=== PATIENT | male | born 1985 | race Hispanic/Latino ===

== ENCOUNTER 2017-06-10 11:05 | Emergency (ER) | payer MEDICAID, OTHER | END 2017-06-10 11:11 | disposition left against medical advice (07) | LOC: C.ER 11:05 | DX: Z04.8 Encounter for examination and observation for other specified reasons (principal); Z02.9 Encounter for administrative examinations, unspecified ==

== ENCOUNTER 2017-06-10 11:20 | Inpatient (IN) | payer MEDICAID, OTHER ==
--- NOTE | 2017-06-10 12:26 | C.PDOC ---
History Of Present Illness 31 y/o male presents to ED requesting detox from heroin (IVDA, uses 20 bags daily). Patient denies physical complaints at this time, and denies SI/HI. Time Seen by Provider: 06/10/17 11:33 Chief Complaint (Nursing): Substance Abuse History Per: Patient History/Exam Limitations: no limitations Current Symptoms Are (Timing): Still Present Suicide/Self Injury Attempted (Context): None Modifying Factor(s): Narcotics Severity: Moderate Associated Symptoms: denies: Suicidal Thoughts, Suicidal Plan Additional History Per: Patient Past Medical History Reviewed: Historical Data, Nursing Documentation, Vital Signs Vital Signs: Last Vital Signs Temp 97.9 F 06/10/17 17:34 Pulse 79 06/10/17 17:34 Resp 18 06/10/17 17:34 BP 107/69 06/10/17 17:34 Pulse Ox 96 06/10/17 17:34 - Medical History PMH: Hepatitis (C) - [employer] Procedures DETOXIFICATION SERVICES FOR SUBSTANCE ABUSE TREATMENT (04/16/16) Family History: States: No Known Family Hx - Social History Hx Tobacco Use: Yes (heavy smoker) Hx Alcohol Use: Yes Hx Substance Use: Yes - Immunization History Hx Tetanus Toxoid Vaccination: No Hx Influenza Vaccination: No Hx Pneumococcal Vaccination: No Review Of Systems Except As Marked, All Systems Reviewed And Found Negative. Constitutional: Negative for: Fever, Chills Cardiovascular: Negative for: Chest Pain, Palpitations Respiratory: Negative for: Cough, Shortness of Breath Gastrointestinal: Negative for: Nausea, Vomiting, Abdominal Pain, Diarrhea Skin: Negative for: Rash, Bruising Neurological: Negative for: Weakness, Numbness, Headache, Dizziness Psych: Positive for: Other (heroin abuse). Negative for: Suicidal ideation Physical Exam - Physical Exam Appears: Well, Non-toxic, No Acute Distress, Other (appears drowsy/under influence of narcotics) Skin: Normal Color, Warm, Dry, No Rash Head: Atraumatic, Normacephalic Eye(s): bilateral: Normal Inspection, EOMI Oral Mucosa: Moist Neck: Supple Cardiovascular: Rhythm Regular Respiratory: Normal Breath Sounds, No Rales, No Rhonchi, No Wheezing Extremity: Normal ROM, No Pedal Edema, No Calf Tenderness, No Deformity Neurological/Psych: Oriented x3 Gait: Steady ED Course And Treatment - Laboratory Results Result Diagrams: 06/10/17 12:40 06/10/17 12:40 O2 Sat by Pulse Oximetry: 98 (on RA) Pulse Ox Interpretation: Normal Progress Note: Blood work, UA, UDS ordered and reviewed. 1:50pm- Patient medically cleared. Accepted for detox admission by Dr. Camacho. Disposition - Disposition Disposition: HOSPITALIZED Disposition Time: 13:51 Condition: STABLE - Clinical Impression Clinical Impression: Heroin dependence - Scribe Statement The provider has reviewed the documentation as recorded by the Scribe Edilma Madrigal All medical record entries made by the Scribe were at my direction and personally dictated by me. I have reviewed the chart and agree that the record accurately reflects my personal performance of the history, physical exam, medical decision making, and the department course for this patient. I have also personally directed, reviewed, and agree with the discharge instructions and disposition. Decision To Admit - Pt Status Changed To: Hospital Disposition Of: Inpatient - Admit Certification Admit to Inpatient:: After my assessment, the patient will require hospitalization for at least two midnights. This is because of the severity of symptoms shown, intensity of services needed, and/or the medical risk in this patient being treated as an outpatient. - InPatient: Physician Admission Certification: I certify that this patient requires 2 or more midnights of care for the following reason:: see notes - . Bed Request Type: Detox Admitting Physician: Kristen Camacho Patient Diagnosis: Heroin dependence
[2017-06-10 12:44] LABS: BASO % 0.6 % (0.0-2.0); EOS # 0.1 K/uL (0.0-0.7); EOS % 1.1 % (0.0-4.0); HEMATOCRIT 37.5 % (35.0-51.0); LYMPH # 1.7 K/uL (1.0-4.3); LYMPH % 31.2 % (20.0-40.0); MEAN CELL VOLUME 82.4 fL (80.0-94.0); MEAN CORPUSCULAR HEMOGLOBIN 28.8 pg (27.0-31.0); MEAN CORPUSCULAR HGB CONC 34.9 g/dL (33.0-37.0); MEAN PLATELET VOLUME 7.2 fL (7.2-11.7); MONO # 0.8 K/uL (0.0-0.8); MONO % 14.1 % (0.0-10.0); WHITE BLOOD COUNT 5.5 K/uL (4.8-10.8)
[2017-06-10 13:05] LABS: CHLORIDE 99 mmol/L (98-107)
[2017-06-10 13:06] LABS: POTASSIUM 3.9 mmol/L (3.6-5.2); SODIUM 139 mmol/L (132-148)
[2017-06-10 13:08] LABS: ALB/GLOB RATIO 1.3 (1.0-2.1); ALKALINE PHOSPHATASE 96 U/L (38-126); AST/SGOT 62 U/L (17-59); BILIRUBIN,TOTAL 0.9 mg/dL (0.2-1.3); BLOOD UREA NITROGEN 15 mg/dL (9-20); CARBON DIOXIDE 28 mmol/L (22-30); GFR AFRICAN-AMERICAN > 60; TOTAL PROTEIN 7.1 g/dL (6.3-8.3)
[2017-06-10 13:09] LABS: ALCOHOL SERUM < 10 mg/dl (0-10); ALT/SGPT 82 U/L (21-72); GLUCOSE,RANDOM 119 mg/dL (75-110)
[2017-06-10 13:18] LABS: RBC URINE < 1 /hpf (0-3); URINE BILIRUBIN NEGATIVE (NEGATIVE); URINE BLOOD NEGATIVE (NEGATIVE); URINE COLOR Yellow (YELLOW); URINE GLUCOSE (UA) NORMAL (Normal); URINE HYALINE CAST 0-2 /lpf (0-2); URINE KETONE NEGATIVE (NEGATIVE); URINE LEUKOCYTE ESTERASE NEG Leu/uL (Negative); URINE PROTEIN NEGATIVE (NEGATIVE); URINE UROBILINOGEN NORMAL mg/dL (0.2-1.0); WBC URINE 1 /hpf (0-5)
[2017-06-10] MEDS ORDERED: Aluminum Hydroxide/Magnesium Hydroxide Susp (30 mL) PO PRN (14:05)
--- NOTE | 2017-06-10 14:49 | PCM.BM ---
<Olive Kruger - Last Filed: 06/10/17 14:47> Treatment Plan Problems - Problems identified on initial assessmt Potential for Opiate Withdrawals Date Initiated: 06/10/17 Assessment reference: NA Status: Active Treatment assets and liabiliti Patient Assests: adapts well, cooperative, ADL independent, physically healthy, negotiates basic needs Patient Liabilities: substance abuse - Milieu Protocol Maintain good personal hygiene: daily Encourage regular showers, daily Remind patient to perform daily oral care, daily Assist patient to perform ADL's Conduct patient checks and document Observation sheet: Q15 minutes Maintain personal safety: every shift Educate patient to report safety concerns to staff, every shift Monitor environment for contraband/sharps Medication safety: Monitor for expected outcome, potential side effects: every shift, Assess barriers to learning: every shift, Assess readiness for medication education: every shift <Kristen Camacho - Last Filed: 06/11/17 13:36> - Diagnosis (1) Opioid use disorder, severe, dependence Status: Acute Interventions: 06/11/17 13:36 * Assess 7x/week regarding severity of withdrawal * Educate regarding risks, benefits, side effects and alternatives of medications * Use Motivational Interviewing for abstinence * Use CBT for relapse prevention * Medication management for withdrawal symptoms * Encourage medication assisted treatment * (2) Cocaine use disorder, severe, dependence Status: Acute Interventions: 06/11/17 13:37 * Assess 7x/week regarding severity of withdrawal * Educate regarding risks, benefits, side effects and alternatives of medications * Use Motivational Interviewing for abstinence * Use CBT for relapse prevention * Medication management for withdrawal symptoms * Encourage medication assisted treatment * <Jacque Robles - Last Filed: 06/11/17 15:05> Family Contact Family involvement: Famliy/SO not involved Family contact: Patient declines to allow family contact at present - Goals for Treatment Patient goals for treatment: Complet detox and transition to [facility] at [facility] in [place], [place]. Discharge/Continuing Care - Education Needs Education Needs: Patient Medication, Patient Diagnosis/Disease Process, Patient Coping Skills, Patient Anger Management skills, Patient Placement options, Patient Community resources - Discharge Discharge Criteria: Free of agitation, Normal sleep pattern, No longer exhibiting s/s of withdrawal, Reduction of target symptoms Discharge to:: With Family - Treatment Team Participation Patient/Family/SO Statement: 06/11/17 15:06 "I already did an intake with [facility] so I wanna go there..." Discussed with Family/SO: No Was Patient/Family/SO present at Treatment Team Meeting: Yes <Tyron Power - Last Filed: 06/12/17 15:37> - Diagnosis (1) Opioid use disorder, severe, dependence Status: Acute Interventions: 06/11/17 13:36 * Assess 7x/week regarding severity of withdrawal * Educate regarding risks, benefits, side effects and alternatives of medications * Use Motivational Interviewing for abstinence * Use CBT for relapse prevention * Medication management for withdrawal symptoms * Encourage medication assisted treatment * 06/12/17 15:37 (2) Cocaine use disorder, severe, dependence Status: Acute Interventions: 06/11/17 13:37 * Assess 7x/week regarding severity of withdrawal * Educate regarding risks, benefits, side effects and alternatives of medications * Use Motivational Interviewing for abstinence * Use CBT for relapse prevention * Medication management for withdrawal symptoms * Encourage medication assisted treatment * 06/12/17 15:37
--- NOTE | 2017-06-11 11:42 | PCM.PSYCH ---
Initial Psychiatric Evaluation - Initial Psychiatric Evaluation Type of Admission: Voluntary Legal Status: Capacity Chief Complaint (in patient's own words): "Heroin" History of Present Illness and Precipitating Events: The patient is seen, chart reviewed and case discussed. This is a 21-year-old male, single with 2 children aged 9 and 6. 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 He lives alone in [place]. The patient is using 20 bags of IV heroin every day. He says that he started when he was 15 years old continued until 21, stopped until 29 y/o and then has been using since. This is his fourth detox and he has been to [facility] twice. He was also attending methadone program [facility] in [place]. He came off 2 months ago from 80 mg of methadone. The patient also uses IV cocaine for a few years and he uses it 2-3 times a week. He denies all other drugs, cigarettes and alcohol. Denies psych symptoms. Past psych history: Denies Medical history: Hepatitis C Family history: Denies Legal history: He is on probation until July. Current Medications: Active Medications Generic Name Dose Route Start Last Admin Trade Name Freq PRN Reason Stop Dose Admin Al Hydrox/Mg Hydrox/Simethicone 30 ml 06/10/17 14:05 Maalox 30 Ml PO TID PRN Indigestion / Heartburn Clonidine HCl 0.1 mg 06/10/17 14:05 Catapres PO Q8 PRN COWS Score More or Equal to 5 Gabapentin 300 mg 06/10/17 18:00 06/11/17 10:32 Neurontin PO 300 mg BID MONIK Administration Hydroxyzine HCl 50 mg 06/10/17 14:09 Atarax PO Q6H PRN Anxiety Ibuprofen 600 mg 06/10/17 14:06 Motrin Tab PO Q6H PRN Pain, moderate (4-7) Loperamide HCl 2 mg 06/10/17 14:05 Imodium PO Q8 PRN Diarrhea Methadone HCl 20 mg 06/11/17 10:00 06/11/17 10:32 Methadone PO 06/16/17 09:59 20 mg Q24H MONIK Administration Taper Ondansetron HCl 4 mg 06/10/17 14:05 Zofran Tab PO Q8 PRN Nausea/Vomiting Trazodone HCl 100 mg 06/10/17 14:09 06/10/17 22:36 Desyrel PO 100 mg HS PRN Administration Insomnia Past Psychiatric History - Past Psychiatric History Previous Treatment History: None Pertinent Medical Hx (Current Medical&Sleep Prob, Allergies): Allergies Allergy/AdvReac Type Severity Reaction Status Date / Time amoxicillin Allergy Verified 06/10/17 11:26 No Known Home Med 06/10/17 Review of Systems - Psychiatric Psychiatric: Abnormal Sleep Pattern, Anxiety, Difficulty Concentrating. absent : Depression, Hallucinations, Homicidal Ideation, Suicidal Ideation Mental Status Examination - Personal Presentation Personal Presentation: Looks stated age - Affect Affect: Constricted - Motor Activity Motor Activity: Calm - Reliability in Providing Information Reliability in Providing Information: Good - Speech Speech: Organized - Mood Mood: Anxious - Formal Thought Process Formal Thought Process: No Impairment - Cognitive Functions Orientation: Person, Place, Situation, Time Attention/Concentration: Attentive Estimate of Intelligence: Average Memory: Recent intact, as evidence by: Ability to recall events of the day, Remote intact, as evidenced by: Abilit to recall sig. life events - Risk Risk: Withdrawal, Diminished functioning - Strength & Assets Inventory Strength & Assets Inventory: Employment history, Cooperative - Limitations Limitations: Other DSM 5 DX - DSM 5 DSM 5 Diagnosis: opioid withdrawal Opioid use disorder, severe Cocaine use disorder, moderate - Recommended/Plan of Treatment Treatment Recommendations and Plan of Treatment: Methadone detox As needed medications Gabapentin for augmentation and for cocaine Attend groups and activities Supportive therapy and psychoeducation [place] for abstinence from both drugs CBT for relapse prevention Encourage MAT Refer to rehab or IOP Attend self-help groups as well 34 min Projected ELOS: 4-5 days Prognosis: Good with treatment Discharge Plan and Discharge Criteria: No wdw sxs - Smoking Cessation Smoking Cessation Initiated: No Reason for not providing: non-smoker
[2017-06-12 06:36] VITALS: RESP 18
--- NOTE | 2017-06-12 15:40 | PCM.PYCHPN ---
Psychiatric Progress Note - Psychiatric Progress Note Patient seen today, length of contact: 15 minutes Patient Chief Complaint: I'm feeling better but I also have anxiety. Problems Identified/Issues Discussed: Patient seen. Chart reviewed. Case discussed with the staff. Issues related to illness and treatment were discussed with the patient. Reported compliant with treatment with no adverse affects. Tolerating treatment very well. Patient reported feeling better with treatment with some anxiety. History last withdrawal symptoms. Better sleep. At the time of evaluation, patient was awake alert oriented 3. Had no delusions , no auditory or visual hallucination, no suicidal ideations or homicidal ideations. Medical Problems: Hepatitis C Diagnostic Results: Reported DSM 5 Symptoms Update: Improvement with treatment Medication Change: No Medical Record Reviewed: Yes Mental Status Examination - Cognitive Function Orientation: Person, Place, Situation, Time Memory: Intact Attention: WNL Concentration: WNL Association: WNL Fund of Knowledge: WN Decription of patient's judgement and insights: Fair - Mood Mood: Anxious - Affect Affect: Other (Appropriate) - Speech Speech: Appropriate - Formal Thought Process Formal Thought Process: No Impairment Psychotic Thoughts and Behaviors: None - Suicidal Ideation Suicidal Ideation: No - Homicidal Ideation Homicidal Ideation: No Goal/Treatment Plan - Goal/Treatment Plan Need for Continued Stay: Remain at risks for inpatient hospitalization, Discharge may exacerbated symptoms, Severe functional impairment Progress Toward Problem(s) and Goals/Treatment Plan: Patient education Supportive therapy Continue treatment as before Estimated Date of D/C: 06/15/17 - Smoking Cessation Smoking Cessation Initiated: No
--- NOTE | 2017-06-13 13:03 | PCM.PYCHPN ---
Psychiatric Progress Note - Psychiatric Progress Note Patient seen today, length of contact: 15 minutes Patient Chief Complaint: I'm feeling better. Problems Identified/Issues Discussed: Patient seen. Chart reviewed. Case discussed with the staff. Issues related to illness and treatment were discussed with the patient. Reported compliant with treatment with no adverse affects. Tolerating treatment very well. Patient reported feeling better with treatment, no anxiety. Better sleep. At the time of evaluation, patient was awake alert oriented 3. Had no delusions , no auditory or visual hallucination, no suicidal ideations or homicidal ideations. Medical Problems: Hepatitis C Diagnostic Results: Reported DSM 5 Symptoms Update: Improving with treatment Medication Change: No Medical Record Reviewed: Yes Mental Status Examination - Cognitive Function Orientation: Person, Place, Situation, Time Memory: Intact Attention: WNL Concentration: WNL Association: WNL Fund of Knowledge: [facility] Decription of patient's judgement and insights: Fair - Mood Mood: Neutral - Affect Affect: Other (Appropriate) - Speech Speech: Appropriate - Formal Thought Process Formal Thought Process: No Impairment Psychotic Thoughts and Behaviors: None - Suicidal Ideation Suicidal Ideation: No - Homicidal Ideation Homicidal Ideation: No Goal/Treatment Plan - Goal/Treatment Plan Need for Continued Stay: Remain at risks for inpatient hospitalization, Discharge may exacerbated symptoms, Severe functional impairment Progress Toward Problem(s) and Goals/Treatment Plan: Patient education Supportive therapy Continue treatment as before Estimated Date of D/C: 06/15/17 - Smoking Cessation Smoking Cessation Initiated: No
--- NOTE | 2017-06-14 10:40 | PCM.PYCHDC ---
Mental Status Examination - Mental Status Examination Orientation: Person, Place, Situation, Time Memory: Intact Mood: Anxious Affect: Constricted Speech: Appropriate Attention: WNL Concentration: WNL Association: WNL Fund of Knowledge: WNL Formal Thought Process: No Impairment Suicidal Ideation: No Current Homicidal Ideation?: No Discharge Summary - Discharge Note Reason for Hospitalization: Heroin detox Consultations:: List each consultation separately and include: 1. Reason for request. 2. Findings. 3. Follow-up Summary of Hospital Course include:: 1. Description of specific treatment plan utilized for patients during their course of treatmen. 2. Summarize the time- course for resolution of acute symptoms and/or regressed behaviors. 3. Describe issues identified and worked on during hospitalization. 4. Describe medication utilized. 5. Describe medical problems identified and treated. 6. Reassessment of suicide risk Summary of Hospital Course: The patient is seen, chart reviewed and case discussed. This is a 21-year-old male, single with 2 children aged 9 and 6. 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 He lives alone in [place]. The patient is using 20 bags of IV heroin every day. He says that he started when he was 15 years old continued until 21, stopped until 29 y/o and then has been using since. This is his fourth detox and he has been to [facility] twice. He was also attending methadone program [facility] in [place]. He came off 2 months ago from 80 mg of methadone. The patient also uses IV cocaine for a few years and he uses it 2-3 times a week. He denies all other drugs, cigarettes and alcohol. Denies psych symptoms. Past psych history: Denies Medical history: Hepatitis C Family history: Denies Legal history: He is on probation until July. - Final Diagnosis (DSM 5) Condition upon Discharge: FAIR DSM 5: opioid withdrawal Opioid use disorder, severe Cocaine use disorder, moderate Disposition: HOME/ ROUTINE Prescriptions/Medication Reconciliation: Gabapentin [Neurontin] 300 mg PO BID #60 cap traZODone [Desyrel] 100 mg PO HS PRN #30 tab PRN Reason: Insomnia - Smoking Cessation Smoking Cessation Medication prescribed: No - Antipsychotic Medications Pt discharged on 2 or more routine antipsychotic medications: No
[2017-06-14 11:01] VITALS: BP 135/75; PULSE 81; TEMP 97.5; O2SAT 99
== END 2017-06-14 10:00 | disposition home or self-care (01) | DRG 744 ==
LOC: C.ER 11:20 → C.7D 13:51
PROVIDERS: ADMIT Psychiatry & Neurology Psychiatry; ATTEND Psychiatry & Neurology Psychiatry
PROC: HZ2ZZZZ Detoxification Services for Substance Abuse Treatment (ICD-10-PCS; principal; 2017-06-10)
PROC: HZ59ZZZ Individual Psychotherapy for Substance Abuse Treatment, Supportive (ICD-10-PCS; 2017-06-10)
PROC: HZ46ZZZ Group Counseling for Substance Abuse Treatment, Psychoeducation (ICD-10-PCS; 2017-06-10)
DX: F11.23 Opioid dependence with withdrawal (principal); F14.20 Cocaine dependence, uncomplicated; B18.2 Chronic viral hepatitis C; F17.210 Nicotine dependence, cigarettes, uncomplicated

== ENCOUNTER 2017-07-05 10:49 | Emergency (ER) | payer MEDICAID, OTHER ==
--- NOTE | 2017-07-05 11:38 | C.PDOC ---
History Of Present Illness 31 yr old male with history of heroin abuse, presents to the ER requesting detox. 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 Denies SI, HI, chest pain, SOB, nausea, vomiting, abdominal pain, headache, weakness or numbness. At the time of evaluation, appears comfortable, not in any apparent distress. Time Seen by Provider: 07/05/17 11:13 Chief Complaint (Nursing): Psychiatric Evaluation History Per: Patient History/Exam Limitations: no limitations Onset/Duration Of Symptoms: Persistent Past Medical History Reviewed: Historical Data, Nursing Documentation, Vital Signs Vital Signs: Last Vital Signs Temp 98.1 F 07/05/17 11:13 Pulse 87 07/05/17 11:13 Resp 18 07/05/17 11:13 BP 125/84 07/05/17 11:13 Pulse Ox 97 07/05/17 11:56 - Medical History PMH: Anxiety, Hepatitis (C) - [employer] Procedures DETOXIFICATION SERVICES FOR SUBSTANCE ABUSE TREATMENT (06/10/17) GROUP SUCCESSFACTORS CONSULTANT FOR SUBSTANCE ABUSE TREATMENT, PSYCHOEDUCATION (06/10/17) INDIV PSYCHOTHERAPY FOR SUBSTANCE ABUSE TREATMENT, SUPPORT (06/10/17) Family History: States: No Known Family Hx - Social History Hx Tobacco Use: Yes (heavy smoker) Hx Alcohol Use: No Hx Substance Use: Yes - Immunization History Hx Tetanus Toxoid Vaccination: No Hx Influenza Vaccination: No Hx Pneumococcal Vaccination: No Review Of Systems Except As Marked, All Systems Reviewed And Found Negative. Cardiovascular: Negative for: Chest Pain Respiratory: Negative for: Shortness of Breath Gastrointestinal: Negative for: Nausea, Vomiting, Abdominal Pain Neurological: Negative for: Weakness, Headache Psych: Negative for: Suicidal ideation Physical Exam - Physical Exam Appears: Non-toxic, No Acute Distress Skin: Warm, Dry, No Rash Head: Atraumatic, Normacephalic Eye(s): bilateral: PERRL Nose: No Flaring, No Discharge Oral Mucosa: Moist, No Drooling Tongue: Normal Appearing Lips: Normal Appearing Throat: No Drooling Neck: No Midline Cervical Tenderness, No Paracervical Tenderness, No Step Off Deformity, Supple Cardiovascular: Rhythm Regular, No JVD Respiratory: No Decreased Breath Sounds, No Accessory Muscle Use, No Stridor, No Wheezing Gastrointestinal/Abdominal: Soft, No Tenderness Extremity: Normal ROM, No Tenderness, No Swelling Neurological/Psych: Oriented x3, Normal Speech ED Course And Treatment O2 Sat by Pulse Oximetry: 97 (RA) Pulse Ox Interpretation: Normal Progress Note: Case was discussed with Crisis team who states patient was admitted to detox less then 60 days ago and is ineligible for detox at the present time. On re-eavl, pt is afebrile, hemodynamicaly stable. Non-toxic. Denies suicidal or homocidal ideation or attempts. Pt understand, agrees with outpt f/u. Pt left without discharge papers. Disposition Counseled Patient/Family Regarding: Diagnosis, Need For Followup - Disposition Referrals: [facility] [Outside] Disposition: HOME/ ROUTINE Disposition Time: 11:30 Condition: STABLE Additional Instructions: FOLLOW UP WITH DETOX IN 2-3 DAYS FOR FURTHER EVALUATION AND TREATMENT RETURN IF ANY NEW CHANGES. Instructions: Opioid Dependence (ED) Forms: [employer] (Monegasque) - Clinical Impression Clinical Impression: Opioid use disorder, severe, dependence - PA / PATROL DEPUTY SHERIFF / Resident Statement MD/DO has reviewed & agrees with the documentation as recorded. - Scribe Statement The provider has reviewed the documentation as recorded by the Scribe Tonya Birmingham All medical record entries made by the Scribe were at my direction and personally dictated by me. I have reviewed the chart and agree that the record accurately reflects my personal performance of the history, physical exam, medical decision making, and the department course for this patient. I have also personally directed, reviewed, and agree with the discharge instructions and disposition.
[2017-07-05 12:03] VITALS: BP 125/84; PULSE 87; RESP 18; TEMP 98.1; O2SAT 97
== END 2017-07-05 11:35 | disposition home or self-care (01) ==
LOC: C.ER 10:49
DX: F11.20 Opioid dependence, uncomplicated (principal)

== ENCOUNTER 2017-08-05 12:02 | Inpatient (IN) | payer MEDICAID, OTHER ==
--- NOTE | 2017-08-05 12:34 | C.PDOC ---
History Of Present Illness 31 y/o male, with PMHx of substance abuse, IVDA, presents to ED requesting heroin detox. Notes using 50 bags of heroin a day. Pt was last admitted for detox 60 days ago. No physical complaints at this time. Time Seen by Provider: 08/05/17 12:23 Chief Complaint (Nursing): Substance Abuse History Per: Patient History/Exam Limitations: no limitations Onset/Duration Of Symptoms: Gradual Current Symptoms Are (Timing): Still Present Suicide/Self Injury Attempted (Context): None Severity: None Pain Scale Rating Of: 0 Associated Symptoms: denies: Suicidal Thoughts, Suicidal Plan Involuntary Hold By: None Recent travel outside of the [place]: No Additional History Per: Prior Records Past Medical History Reviewed: Historical Data, Nursing Documentation, Vital Signs Vital Signs: Last Vital Signs Temp 97.5 F L 08/05/17 12:04 Pulse 69 08/05/17 12:04 Resp 20 08/05/17 12:04 BP 112/74 08/05/17 12:04 Pulse Ox 96 08/05/17 14:08 - Medical History PMH: Anxiety, Hepatitis (C) Denies: Diabetes, HIV, HTN, Chronic Kidney Disease, Seizures, Sexually Transmitted Disease - [facility] Procedures DETOXIFICATION SERVICES FOR SUBSTANCE ABUSE TREATMENT (06/10/17) GROUP SHEET METAL FORMER FOR SUBSTANCE ABUSE TREATMENT, PSYCHOEDUCATION (06/10/17) INDIV PSYCHOTHERAPY FOR SUBSTANCE ABUSE TREATMENT, SUPPORT (06/10/17) Family History: States: Unknown Family Hx - Social History Hx Tobacco Use: Yes (heavy smoker) Hx Alcohol Use: No Hx Substance Use: Yes - Immunization History Hx Tetanus Toxoid Vaccination: No Hx Influenza Vaccination: No Hx Pneumococcal Vaccination: No Review Of Systems Except As Marked, All Systems Reviewed And Found Negative. Constitutional: Negative for: Fever, Chills Cardiovascular: Negative for: Chest Pain, Palpitations Respiratory: Negative for: Cough, Shortness of Breath Gastrointestinal: Negative for: Nausea, Vomiting, Abdominal Pain Neurological: Negative for: Headache, Dizziness Psych: Negative for: Suicidal ideation Physical Exam - Physical Exam Appears: Non-toxic, No Acute Distress Skin: Normal Color, Warm, Dry Head: Atraumatic, Normacephalic Oral Mucosa: Moist Neck: Supple Chest: Symmetrical Cardiovascular: Rhythm Regular, No Murmur Respiratory: Normal Breath Sounds, No Rales, No Rhonchi, No Wheezing Gastrointestinal/Abdominal: Soft, No Tenderness Extremity: Normal ROM Neurological/Psych: Oriented x3, Normal Speech ED Course And Treatment - Laboratory Results Result Diagrams: 08/05/17 13:42 08/05/17 13:42 O2 Sat by Pulse Oximetry: 96 (on RA) Pulse Ox Interpretation: Normal Medical Decision Making Medical Decision Making: Blood work, urinalysis ordered and reviewed. Pending crisis evaluation. Disposition Counseled Patient/Family Regarding: Diagnosis, Need For Followup - Disposition Disposition: HOSPITALIZED Disposition Time: 16:07 Condition: STABLE Additional Instructions: August 14 will be 60 days from your last admission. Call Jacque at [phone] on/after August 14. Return to the Emergency Department with any further concerns. - POA Present On Arrival: None - Clinical Impression Clinical Impression: Drug dependence - Scribe Statement The provider has reviewed the documentation as recorded by the Scribe Edilma Madrigal All medical record entries made by the Scribe were at my direction and personally dictated by me. I have reviewed the chart and agree that the record accurately reflects my personal performance of the history, physical exam, medical decision making, and the department course for this patient. I have also personally directed, reviewed, and agree with the discharge instructions and disposition. Decision To Admit - Pt Status Changed To: Hospital Disposition Of: Inpatient - Admit Certification Admit to Inpatient:: After my assessment, the patient will require hospitalization for at least two midnights. This is because of the severity of symptoms shown, intensity of services needed, and/or the medical risk in this patient being treated as an outpatient. - InPatient: Physician Admission Certification: I certify that this patient requires 2 or more midnights of care for the following reason:: needs inpatient detox - . Bed Request Type: Detox Patient Diagnosis: Drug dependence
[2017-08-05 13:48] LABS: BASO % 0.6 % (0.0-2.0); EOS # 0.2 K/uL (0.0-0.7); EOS % 2.7 % (0.0-4.0); HEMATOCRIT 45.1 % (35.0-51.0); LYMPH # 1.9 K/uL (1.0-4.3); LYMPH % 29.6 % (20.0-40.0); MEAN CELL VOLUME 83.7 fL (80.0-94.0); MEAN CORPUSCULAR HEMOGLOBIN 28.5 pg (27.0-31.0); MEAN PLATELET VOLUME 7.2 fL (7.2-11.7); MONO # 0.7 K/uL (0.0-0.8); MONO % 11.7 % (0.0-10.0); NRBC % 0.1 % (0.0-2.0); RED CELL DISTRIBUTION WIDTH 13.2 % (11.5-14.5); WHITE BLOOD COUNT 6.4 K/uL (4.8-10.8)
[2017-08-05 13:54] LABS: URINE BILIRUBIN NEGATIVE (NEGATIVE); URINE BLOOD NEGATIVE (NEGATIVE); URINE COLOR Yellow (YELLOW); URINE GLUCOSE (UA) NORMAL (Normal); URINE KETONE NEGATIVE (NEGATIVE); URINE LEUKOCYTE ESTERASE NEG Leu/uL (Negative); URINE PROTEIN NEGATIVE (NEGATIVE); URINE UROBILINOGEN NORMAL mg/dL (0.2-1.0)
[2017-08-05 14:01] LABS: ALB/GLOB RATIO 1.1 (1.0-2.1); ALCOHOL SERUM < 10 mg/dl (0-10); ALKALINE PHOSPHATASE 102 U/L (38-126); ALT/SGPT 117 U/L (21-72); BILIRUBIN,TOTAL 0.7 mg/dL (0.2-1.3); BLOOD UREA NITROGEN 16 mg/dL (9-20); CALCIUM 8.8 mg/dl (8.6-10.4); CARBON DIOXIDE 29 mmol/L (22-30); CHLORIDE 96 mmol/L (98-107); GFR AFRICAN-AMERICAN > 60; GLUCOSE,RANDOM 85 mg/dL (75-110); POTASSIUM 4.1 mmol/L (3.6-5.2); SODIUM 133 mmol/L (132-148); TOTAL PROTEIN 8.1 g/dL (6.3-8.3)
[2017-08-05 14:11] LABS: AST/SGOT 81 U/L (17-59)
--- NOTE | 2017-08-05 16:21 | PCM.BM ---
<Vanesa Barboza - Last Filed: 08/05/17 16:20> Treatment Plan Problems - Problems identified on initial assessmt potiential for opiate withdrawal Date Initiated: 08/05/17 Time Initiated: 16:20 Assessment reference: NA Status: Active Treatment assets and liabiliti Patient Assests: adapts well, cooperative, ADL independent, negotiates basic needs Patient Liabilities: substance abuse, medical problems - Milieu Protocol Maintain good personal hygiene: daily Encourage regular showers, daily Remind patient to perform daily oral care, daily Assist patient to perform ADL's Maintain personal safety: every shift Educate patient to report safety concerns to staff, every shift Monitor environment for contraband/sharps Medication safety: Monitor for expected outcome, potential side effects: every shift, Assess barriers to learning: every shift, Assess readiness for medication education: every shift <Kristen Camacho - Last Filed: 08/06/17 00:21> - Diagnosis (1) Opioid use disorder, severe, dependence Status: Acute Interventions: 08/06/17 00:21 * Assess 7x/week regarding severity of withdrawal * Educate regarding risks, benefits, side effects and alternatives of medications * Use Motivational Interviewing for abstinence * Use CBT for relapse prevention * Medication management for withdrawal symptoms * Encourage medication assisted treatment *
[2017-08-05] MEDS ORDERED: Aluminum Hydroxide/Magnesium Hydroxide Susp (30 mL) PO PRN (22:41)
--- NOTE | 2017-08-06 00:22 | PCM.PSYCH ---
Initial Psychiatric Evaluation - Initial Psychiatric Evaluation Type of Admission: Voluntary Legal Status: Capacity Chief Complaint (in patient's own words): "Withdrawing" History of Present Illness and Precipitating Events: The patient is seen, chart reviewed and case discussed. He is known from previous admissions. This is a 31-year-old male, single with 2 children aged 9 and 6. 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 He lives alone in [place]. His children are with his GF or her family and he is not supposed to see them due to his use, he says. The patient is using up to 50 bags of IV heroin every day. He says that he started when he was 15 years old continued until 21, stopped until 29 y/o and then has been using since. This is his fifth detox and he has been to [facility] twice. He was also attending [facility] program [facility] in [place]. He came off 4 months ago from 80 mg of methadone. He was here with us 2 months ago but did not follow with [facility] and did not tell us that he would not follow - he claims he heard "bad things" about the IOP and it was also far. The patient also uses IV cocaine for a few years and he uses it 2-3 times a week. He denies all other drugs, cigarettes and alcohol. Denies psych symptoms. Past psych history: Denies Medical history: Hepatitis C Family history: Denies Current Medications: Active Medications Generic Name Dose Route Start Last Admin Trade Name Freq PRN Reason Stop Dose Admin Al Hydrox/Mg Hydrox/Simethicone 30 ml 08/05/17 22:41 Maalox 30 Ml PO TID PRN Indigestion / Heartburn Clonidine HCl 0.1 mg 08/05/17 22:41 Catapres PO Q8 PRN COWS Score More or Equal to 5 Gabapentin 300 mg 08/06/17 10:00 Neurontin PO BID MONIK Hydroxyzine HCl 25 mg 08/05/17 19:55 Atarax PO Q6 PRN Anxiety Ibuprofen 600 mg 08/05/17 22:41 Motrin Tab PO Q6H PRN Pain, moderate (4-7) Loperamide HCl 2 mg 08/05/17 22:41 Imodium PO Q8 PRN Diarrhea Methadone HCl 15 mg 08/06/17 09:30 Methadone PO 08/10/17 09:29 Q24H MONIK Taper Ondansetron HCl 4 mg 08/05/17 22:41 Zofran Tab PO Q8 PRN Nausea/Vomiting Trazodone HCl 50 mg 08/05/17 19:54 08/05/17 22:11 Desyrel PO 50 mg HS PRN Administration insomnia Past Psychiatric History - Past Psychiatric History Previous Treatment History: None Pertinent Medical Hx (Current Medical&Sleep Prob, Allergies): Allergies Allergy/AdvReac Type Severity Reaction Status Date / Time amoxicillin Allergy Verified 08/05/17 12:06 Gabapentin [Neurontin] 300 mg PO BID #60 cap 06/14/17 traZODone [Desyrel] 100 mg PO HS PRN #30 tab 06/14/17 Review of Systems - Neurological Neurological: UNREMARKABLE - Psychiatric Psychiatric: Abnormal Sleep Pattern, Anxiety, Behavioral Changes, Difficulty Concentrating, Irritability, Mood Swings. absent: Hallucinations, Homicidal Ideation Mental Status Examination - Personal Presentation Personal Presentation: Looks stated age (unkempt and evasive) - Affect Affect: Constricted - Motor Activity Motor Activity: Psychomotor Agitation (mild) - Reliability in Providing Information Reliability in Providing Information: Fair - Speech Speech: Organized - Mood Mood: Anxious - Formal Thought Process Formal Thought Process: No Impairment - Cognitive Functions Orientation: Person Sensorium: Alert Attention/Concentration: Easily distracted Estimate of Intelligence: Average Judgement: Intact, as evidence by: Insight regarding need for hospitalization Memory: Recent intact, as evidence by: Ability to recall events of the day, Remote intact, as evidenced by: Abilit to recall sig. life events - Risk Risk: Withdrawal, Diminished functioning - Strength & Assets Inventory Strength & Assets Inventory: Cooperative - Limitations Limitations: Other DSM 5 DX - DSM 5 DSM 5 Diagnosis: Opioid use d/o - severe Opioid withdrawal Cocaine use d/o - severe Pers. d/o -unspecified - Recommended/Plan of Treatment Treatment Recommendations and Plan of Treatment: Methadone detox As needed medications Gabapentin for augmentation Attend groups and activities Supportive therapy and psychoeducation MS for abstinence CBT for relapse prevention Encourage MAT Refer to rehab or IOP Attend self-help groups as well 34 min Projected ELOS: 4 days Prognosis: good with MAT - Smoking Cessation Smoking Cessation Initiated: Yes
[2017-08-07 12:14] VITALS: BP 121/77; PULSE 98; RESP 20; TEMP 97.6; O2SAT 98
--- NOTE | 2017-08-07 13:38 | PCM.PYCHDC ---
Mental Status Examination - Mental Status Examination Orientation: Person, Place, Situation, Time Memory: Intact Mood: Neutral Affect: Constricted Speech: Appropriate Attention: WNL Concentration: WNL Association: WNL Fund of Knowledge: WNL Formal Thought Process: No Impairment Description of patient's judgement and insight: Limited/Limited Psychotic Thoughts and Behaviors: denied Suicidal Ideation: No Current Homicidal Ideation?: No Discharge Summary - Discharge Note Reason for Hospitalization: This is a 31-year-old male, single with 2 children aged 9 and 6. 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 He lives alone in [place]. His children are with his GF or her family and he is not supposed to see them due to his use, he says. The patient is using up to 50 bags of IV heroin every day. He says that he started when he was 15 years old continued until 21, stopped until 29 y/o and then has been using since. This is his fifth detox and he has been to [facility] twice. He was also attending [facility] program [facility] in [place]. He came off 4 months ago from 80 mg of methadone. He was here with us 2 months ago but did not follow with [facility] and did not tell us that he would not follow - he claims he heard "bad things" about the IOP and it was also far. The patient also uses IV cocaine for a few years and he uses it 2-3 times a week. He denies all other drugs, cigarettes and alcohol. Denies psych symptoms. Past psych history: Denies Medical history: Hepatitis C Family history: Denies Consultations:: List each consultation separately and include: 1. Reason for request. 2. Findings. 3. Follow-up Summary of Hospital Course include:: 1. Description of specific treatment plan utilized for patients during their course of treatmen. 2. Summarize the time- course for resolution of acute symptoms and/or regressed behaviors. 3. Describe issues identified and worked on during hospitalization. 4. Describe medication utilized. 5. Describe medical problems identified and treated. 6. Reassessment of suicide risk Summary of Hospital Course: The pt was admitted and started on Methadone protocol treatment with psychotherapy. He received supportive psychotherapy, psychoeducation and medications. He was compliant with the meds. He was d/c AMA because he requested earlier discharge and he did not completed his detox treatment. Psychoeducation was provided regarding treatment and compliance education as well as he was educated that he should stay away from illicit drugs use. Psychoeducation was provided regarding the Opioid OD, relapse on drugs. Pt verbalized understanding and stated that he is currently had no opioid withdrawal symptoms and he will f/u with [facility]. MS and CBT was used. The pt attended groups and activities, as well as milieu therapy. All the risks and benefits of medications are discussed and the patient understood and agreed. At the time of d/c he denied SI, HI, intent or plan. - Final Diagnosis (DSM 5) Condition upon Discharge: STABLE Disposition: AGAINST MEDICAL ADVICE Follow-up Treatment Plan: Continue Trazodone and Gabapentin medications after discharge. No prescription was provided because pt stated that he had enough supply at home. Follow after d/c with [facility] rehab program by walk in at [place]. Use relapse prevention skills Return to ER or call 911 if suicidal, homicidal or symptoms relapse. Stay away from stress, alcohol and drugs. See primary doctor once a year. - Smoking Cessation Smoking Cessation Medication prescribed: Yes - Antipsychotic Medications Pt discharged on 2 or more routine antipsychotic medications: No
== END 2017-08-07 14:15 | disposition left against medical advice (07) | DRG 743 ==
LOC: C.ER 12:02 → C.7D 16:08
PROVIDERS: ADMIT Psychiatry & Neurology Psychiatry; ATTEND Psychiatry & Neurology Psychiatry
PROC: HZ2ZZZZ Detoxification Services for Substance Abuse Treatment (ICD-10-PCS; principal; 2017-08-05)
PROC: HZ59ZZZ Individual Psychotherapy for Substance Abuse Treatment, Supportive (ICD-10-PCS; 2017-08-05)
PROC: HZ46ZZZ Group Counseling for Substance Abuse Treatment, Psychoeducation (ICD-10-PCS; 2017-08-05)
DX: F11.23 Opioid dependence with withdrawal (principal); F14.90 Cocaine use, unspecified, uncomplicated; B18.2 Chronic viral hepatitis C; F17.210 Nicotine dependence, cigarettes, uncomplicated